=== PATIENT | female | born 1955 | race Caucasian/White ===

== ENCOUNTER 2020-08-31 08:55 | Outpatient (CLI) | payer MEDICARE, OTHER | END 2020-08-31 23:59 | disposition home or self-care (01) | LOC: CFH 08:55 | PROVIDERS: ATTEND Family Medicine | DX: Z12.39 Encounter for other screening for malignant neoplasm of breast (principal); R92.2 Inconclusive mammogram | CPT/HCPCS: 76641; 77063; 77067 ==